=== PATIENT | female | born 1970 | race Caucasian/White ===

== ENCOUNTER 2023-10-15 03:26 | Emergency (ER) | payer BC ==
[2023-10-15] MEDS ORDERED: METOCLOPRAMIDE 10 MG/2mL INJ ONE (04:02)
[2023-10-15] MEDS ORDERED: DIPHENHYDRAMINE 50 MG/ML VIAL ONE (04:02)
[2023-10-15] MEDS ORDERED: NA CHLORIDE 0.9% 1,000 ML ONE (04:03)
[2023-10-15] MEDS ORDERED: MORPHINE 4 MG/ML SYR ONE (04:03)
[2023-10-15] MEDS ORDERED: LABETALOL 20 MG/4ML SYRINGE IV ONE (04:16)
[2023-10-15 04:18] LABS: Absolute Basophils 0.1 K/uL (0-0.5); Absolute Eosinophils 0.2 K/uL (0-0.5); Absolute Lymphocytes (CBC) 3.3 K/uL (0.7-4.9); Absolute Monocytes 0.5 K/uL (0.1-1.3); Absolute Neutrophil 4.8 K/uL (1.8-8.0); Basophils % 0.6 % (0-1.3); Eosinophils % 2.5 % (0-4.4); Hematocrit 45.8 % (36.0-45.0); Hemoglobin 15.7 g/dL (12.0-15.0); Lymphocytes % 37.1 % (15.3-44.8); MCH 31.8 pg (27.0-35.0); MCHC 34.3 g/dL (32.0-36.0); MCV 92.7 fL (80-100); MPV 9.3 fL (7.6-11.3); Monocytes % 5.2 % (3.3-12.3); Neutrophils % 54.6 % (41.7-73.7); Platelets 213 thou/uL (152-406); RBC Red Blood Cell Count 4.94 M/uL (3.86-4.86); Red Cell Distribution Width 13.3 % (12.1-15.2)
[2023-10-15 04:21] LABS: PT Prothrombin Time 11.3 SECONDS (9.4-12.5); PTT, Activated Partial Thromb 34.4 SECONDS (24.3-36.9); Protime INR 1.03
[2023-10-15 04:33] LABS: Anion Gap 8.7 mEq/L (5.0-15.0); Potassium 3.7 mEq/L (3.5-5.1)
[2023-10-15] MEDS ORDERED: LEVETIRACETAM 500 MG/5 ML VIAL IV ONE (04:33)
[2023-10-15] MEDS ORDERED: NA CHLORIDE 0.9% 100 ML ONE (04:34)
--- NOTE | 2023-10-15 09:01 | EDPHYS ---
Physician Documentation [facility] Name: Emmy Bullock Age: 53 yrs Sex: Female : 1970 Arrival Date: 10/15/2023 Time: 03:26 Bed 5 Private MD: ED Physician August Schofield HPI: 10/14 03:53 This 53 yrs old Female presents to ER via Unassigned with complaints of Pain, ec2 LEFT SIDE HEAD PAIN. 03:53 Patient arrives today for evaluation of headache. Patient complaining of left-sided ec2 headache that was sudden onset after climaxing during intercourse. States that she took sumatriptan with no alleviation of symptoms.. 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 Flu vaccine is not up to date. - Infectious Disease History:: Denies. - Social history:: Smoking status: Patient reports the use of cigarette tobacco products, denies chronic smoking, but will smoke occasionally, Patient uses alcohol, only on a social basis. Patient/guardian denies using street drugs, IV drugs. ROS: 03:53 Constitutional: as per hpi ec2 Exam: 03:53 Constitutional: GEN: NAD Head: atraumatic Eyes: EOMI Ears: External ears are ec2 normal. CV: regular rate LUNGS: no respiratory distress ABD: non-distended SKIN: no evidence of rashes MSK: no evidence of trauma NEURO: moves all extremities equally, cranial nerves II through XII intact, strength intact all 4 extremities, intact ambulation Vital Signs: 03:40 BP 213 / 122; Pulse 83; Resp 17 S; Pulse Ox 97% on R/A; Weight 115.67 kg; Height 5 ft. jw7 2 in. ; Pain 8/10; 04:50 BP 162 / 90; Pulse 66; Resp 16 S; Pulse Ox 95% on R/A; jw7 05:51 BP 142 / 95; Pulse 65; Resp 17 S; Pulse Ox 95% on R/A; lg3 06:25 BP 138 / 88; Pulse 61; Resp 16 S; Temp 97.6(O); Pulse Ox 96% on R/A; lg3 03:40 Body Mass Index 46.64 (115.67 kg, 157.48 cm) jw7 03:40 Pain Scale: Adult jw7 MDM: 03:39 Patient medically screened. ec2 03:53 Data reviewed: vital signs. ED course: Patient arrives today for evaluation of a ec2 headache. Examination remarkable for neuro intact individual. Will treat the patient's symptoms, treat her hypertension and obtain CT scan of the head and CT angio to evaluate for subarachnoid brain bleed. Additionally considered other process such as headache syndrome, intracranial mass.. 04:24 ED course: CT of the head and CT angio of the head and neck, independently reviewed and ec2 interpreted by me, concerning for subarachnoid brain bleed. Will proceed with blood pressure management, pain control, likely transfer.. 04:37 ED course: Metabolic profile, CBC, coagulation profile is unremarkable. . ec2 05:06 ED course: Radiology reports negative CT angio, negative CT scan of the head. I ec2 discussed the case personally with radiology due to concern for hyperdensity, radiology expresses this is likely calcification and does not appear to be hemorrhagic in nature. Will continue to monitor the patient clinically, she does report marked improvement in her headache.. 06:17 ED course: On reassessment patient reports marked improvement in symptoms, has a intact ec2 neurologic exam, is ambulatory. Will discharge home and instructed on strict return precautions symptoms worsen will go to obtain additional imaging.. 10/14 04:08 Order name: Basic Metabolic Panel; Complete Time: 04:37 EDMS 10/14 04:08 Order name: CBC with Automated Diff; Complete Time: 04:37 EDMS 10/14 04:08 Order name: Protime (+INR); Complete Time: 04:37 EDMS 10/14 04:08 Order name: PTT, Activated Partial Thromb; Complete Time: 04:37 EDMS 10/14 04:03 Order name: Head Brain Wo Cont EDMS 10/14 04:03 Order name: Head angio EDMS 10/14 03:49 Order name: IV; Complete Time: 04:12 ec2 Administered Medications: 04:10 Drug: NS 0.9% IV 1000 ml IV at 1 bolus Per protocol; 1000 mL bolus Route: IV; Rate: 1 jw7 bolus; Site: right antecubital; 05:54 Follow up: Response: No adverse reaction; IV Status: Completed infusion; IV Intake: jw7 1000ml 04:10 Drug: metoCLOPramide IVP 10 mg IVP once; over 1 to 2 minutes Route: IVP; Site: right [facility] antecubital; 05:54 Follow up: Response: No adverse reaction; Marked relief of symptoms [facility] 04:10 Drug: diphenhydrAMINE IVP 25 mg IVP once Route: IVP; Site: right antecubital; jw7 05:54 Follow up: Response: No adverse reaction; Marked relief of symptoms [facility] 04:10 Drug: morphine IVP or IV 2 mg IVP once over 4 mins Route: IVP; Infused Over: 4 mins; jw7 Site: right antecubital; 05:54 Follow up: Response: No adverse reaction; Marked relief of symptoms [facility] 04:30 Drug: Labetalol IV 10 mg IV at bolus once Route: IV; Rate: bolus; [address]; 05:54 Follow up: Response: No adverse reaction; Marked relief of symptoms; IV Status: jw7 Completed infusion; IV Intake: 2ml 04:47 Drug: Keppra IV 1000 mg IV at bolus once Route: IV; Rate: bolus; Site: right [address]; 05:54 Follow up: Response: No adverse reaction; Marked relief of symptoms; IV Status: jw7 Completed infusion; IV Intake: 110ml Disposition Summary: 10/15/23 06:17 Discharge Ordered Notes: Location: Home ec2 Condition: Stable ec2 Diagnosis - Headache ec2 Followup: ec2 - With: Private Physician - When: - Reason: Re-evaluation by your physician Discharge Instructions: - Discharge Summary Sheet ec2 - General Headache Without Cause ec2 Forms: - Medication Reconciliation Form ec2 - Antibiotic Education ec2 - Prescription Opioid Use ec2 - Patient Portal Instructions ec2 - Leadership Thank You Letter ec2 Prescriptions: - Compazine 10 mg Oral Tablet - take 1 tablet ORAL route every 8 hours As needed; 20 tablet; Refills: 0, ec2 Product Selection Permitted Signatures: Dispatcher [facility] Emmy Valle RN RN jw7 August Schofield MD MD ec2 Corrections: (The following items were deleted from the chart) 05:26 04:24 ED course: CT of the head and CT angio of the head and neck, independently ec2 reviewed and interpreted by me, concerning for subarachnoid brain bleed. Will proceed with blood pressure management, pain control, transfer.. ec2
--- NOTE | 2023-10-15 09:01 | ER ---
Nurse's Notes [facility] Name: Emmy Bullock Age: 53 yrs Sex: Female : 1970 Arrival Date: 10/15/2023 Time: 03:26 Bed 5 Private MD: Diagnosis: Headache Presentation: 10/14 03:40 Chief complaint: Patient states: At the climax of sex I got a severe pain on the left jw7 side of my head. I've tried taking multiple medications to help with the pain but no relief. 03:40 Coronavirus screen: At this time, the client does not indicate any symptoms associated jw7 with coronavirus-19. Ebola Screen: No symptoms or risks identified at this time. Initial Sepsis Screen: Does the patient meet any 2 criteria? No. Patient's initial sepsis screen is negative. Does the patient have a suspected source of infection? No. Patient's initial sepsis screen is negative. Risk Assessment: Do you want to hurt yourself or someone else? Patient reports no desire to harm self or others. Onset of symptoms was October 14, 2023. 03:40 Method Of Arrival: Ambulatory jw7 03:40 Acuity: TACHO 2 jw7 Triage Assessment: 03:40 General: Appears in no apparent distress. uncomfortable, Behavior is calm, cooperative, jw7 appropriate for age. Pain: Complains of pain in left frontal area, left side of the back of head and left temporal area Pain does not radiate. Pain currently is 8 out of 10 on a pain scale. Quality of pain is described as sharp, throbbing, Pain began 1 day ago. Is continuous. EENT: No deficits noted. No signs and/or symptoms were reported regarding the EENT system. Neuro: Level of Consciousness is awake, alert, obeys commands, Oriented to person, place, time, situation, Appropriate for age. Cardiovascular: Heart tones S1 S2 present Capillary refill < 3 seconds Clubbing of nail beds is absent JVD is absent Patient's skin is warm and dry. Respiratory: Airway is patent Trachea midline Respiratory effort is even, unlabored, Respiratory pattern is regular, symmetrical, Breath sounds are clear bilaterally. GI: Abdomen is round non-distended, obese, Bowel sounds present X 4 quads. Abd is soft and non tender X 4 quads. : No deficits noted. No signs and/or symptoms were reported regarding the genitourinary system. Derm: Skin is intact, is healthy with good turgor, Skin is dry, Skin is normal, Skin temperature is warm. Musculoskeletal: Circulation, motion, and sensation intact. Range of motion: intact in all extremities. 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 Flu vaccine is not up to date. - Infectious Disease History:: Denies. - Social history:: Smoking status: Patient reports the use of cigarette tobacco products, denies chronic smoking, but will smoke occasionally, Patient uses alcohol, only on a social basis. Patient/guardian denies using street drugs, IV drugs. Screenin:45 [facility] ED Fall Risk Assessment (Adult) History of falling in the last 3 months, jw7 including since admission No falls in past 3 months (0 pts) Confusion or Disorientation No (0 pts) Intoxicated or Sedated No (0 pts) Impaired Gait No (0 pts) Mobility Assist Device Used No (0 pt) Altered Elimination No (0 pt) Score/Fall Risk Level 0 - 2 = Low Risk Oriented to surroundings, Maintained a safe environment, Educated pt \T\ family on fall prevention, incl call for assistance when getting out of bed. Abuse screen: Denies threats or abuse. Denies injuries from another. Nutritional screening: No deficits noted. Tuberculosis screening: No symptoms or risk factors identified. Assessment: 03:45 General: See Triage Assessment. jw7 04:50 Reassessment: Patient appears in no apparent distress at this time. No changes from jw7 previously documented assessment. Patient and/or family updated on plan of care and expected duration. Pain level reassessed. Patient is alert, oriented x 3, equal unlabored respirations, skin warm/dry/pink. 05:55 Reassessment: Patient appears in no apparent distress at this time. Patient and/or jw7 family updated on plan of care and expected duration. Pain level reassessed. Patient is alert, oriented x 3, equal unlabored respirations, skin warm/dry/pink. Patient states symptoms have improved. Vital Signs: 03:40 BP 213 / 122; Pulse 83; Resp 17 S; Pulse Ox 97% on R/A; Weight 115.67 kg; Height 5 ft. jw7 2 in. ; Pain 8/10; 04:50 BP 162 / 90; Pulse 66; Resp 16 S; Pulse Ox 95% on R/A; jw7 05:51 BP 142 / 95; Pulse 65; Resp 17 S; Pulse Ox 95% on R/A; lg3 06:25 BP 138 / 88; Pulse 61; Resp 16 S; Temp 97.6(O); Pulse Ox 96% on R/A; lg3 03:40 Body Mass Index 46.64 (115.67 kg, 157.48 cm) jw7 03:40 Pain Scale: Adult jw7 ED Course: 03:29 Patient arrived in ED. ec2 03:30 August Schofield MD is Attending Physician. ec2 03:40 Arm band placed on. jw7 03:45 Patient has correct armband on for positive identification. Bed in low position. Call jw7 light in reach. Provided Education on: Use of Call Light. 03:52 Emmy Gutiérrez, RN is Primary Nurse. jw7 03:56 Triage completed. jw7 03:59 Initial lab(s) drawn, by ED staff, sent to lab. Inserted saline lock: 20 gauge in right jw7 antecubital area, using aseptic technique. Blood collected. 04:09 Head Brain Wo Cont In Process Unspecified. EDMS 04:09 Head angio In Process Unspecified. EDMS 06:26 No provider procedures requiring assistance completed. IV discontinued, intact, lg3 bleeding controlled, No redness/swelling at site. Pressure dressing applied. Administered Medications: 04:10 Drug: NS 0.9% IV 1000 ml IV at 1 bolus Per protocol; 1000 mL bolus Route: IV; Rate: 1 jw7 bolus; Site: right antecubital; 05:54 Follow up: Response: No adverse reaction; IV Status: Completed infusion; IV Intake: jw7 1000ml 04:10 Drug: metoCLOPramide IVP 10 mg IVP once; over 1 to 2 minutes Route: IVP; Site: right jw7 antecubital; 05:54 Follow up: Response: No adverse reaction; Marked relief of symptoms jw7 04:10 Drug: diphenhydrAMINE IVP 25 mg IVP once Route: IVP; Site: right antecubital; jw7 05:54 Follow up: Response: No adverse reaction; Marked relief of symptoms jw7 04:10 Drug: morphine IVP or IV 2 mg IVP once over 4 mins Route: IVP; Infused Over: 4 mins; jw7 Site: right antecubital; 05:54 Follow up: Response: No adverse reaction; Marked relief of symptoms jw7 04:30 Drug: Labetalol IV 10 mg IV at bolus once Route: IV; Rate: bolus; Site: right [facility] antecubital; 05:54 Follow up: Response: No adverse reaction; Marked relief of symptoms; IV Status: jw7 Completed infusion; IV Intake: 2ml 04:47 Drug: Keppra IV 1000 mg IV at bolus once Route: IV; Rate: bolus; Site: right [facility] antecubital; 05:54 Follow up: Response: No adverse reaction; Marked relief of symptoms; IV Status: jw7 Completed infusion; IV Intake: 110ml Medication: 06:27 VIS not applicable for this client. lg3 Intake: 05:54 IV: 1000ml; Total: 1000ml. jw7 05:54 IV: 2ml; Total: 1002ml. jw7 05:54 IV: 110ml; Total: 1112ml. jw7 Outcome: 06:17 Discharge ordered by . ec2 06:26 Discharged to home ambulatory, with significant other, lg3 06:26 Condition: stable 06:26 Discharge instructions given to patient, Instructed on discharge instructions, follow up and referral plans. medication usage, Demonstrated understanding of instructions, follow-up care, medications, Prescriptions given X , 06:27 Patient left the ED. lg3 Signatures: Dispatcher [employer] Milvia Lindsey RN RN lg3 Emmy Gutiérrez RN RN jw7 August Schofield MD MD ec2
[2023-10-15 17:04] VITALS: BP 138/88; TEMP 97.6; O2SAT 96
--- NOTE | 2023-10-15 22:44 | RAD REPORT ---
EXAM DESCRIPTION: CT - Head angio - 10/15/2023 7:20 am CLINICAL HISTORY: 53 years Female HEADACHE TECHNIQUE: Following dynamic intravenous nonionic contrast infusion, multiple axial helical overlapp ed CT images with multiplanar reconstructions were obtained. All CT data was transferred to a 3D wo rkstation for multiplanar reformation and 3D reconstruction.The CT study is performed according to AL TK (as low as reasonably achievable) or ALARA/IMAGE GENTLY, with automatic adjustment of mA and/or k V according to patient size. COMPARISON: Head CT without contrast performed on 10/15/2023 at 4:13 AM FINDINGS: There is optimal intracranial vascular enhancement. LEFT: INTERNAL CAROTID ARTERY: The distal internal carotid artery is unremarkable. ANTERIOR CEREBRAL ARTERY: he A1 segment is normal in caliber and contour. The A2 segment is normal in caliber and contour. The region of the anterior communicating artery is unremarkable. MIDDLE CEREBRAL ARTERY: The M1 segment is normal in caliber and contour. The M2 branches normal in ca liber and contour. POSTERIOR CEREBRAL ARTERY: he P1 segment is mildly hypoplastic. There appears to be a origin of the left posterior cerebral artery. The P2 segment is normal in caliber and contour. VERTEBRAL ARTERY: The intradural left vertebral artery is normal in caliber and contour. RIGHT: INTERNAL CAROTID ARTERY: The distal internal carotid artery is unremarkable. ANTERIOR CEREBRAL ARTERY: The A1 segment is normal in caliber and contour. The A2 segment is normal i n caliber and contour. MIDDLE CEREBRAL ARTERY: he M1 segment is normal in caliber and contour. The M2 branches normal in ed iber and contour. POSTERIOR CEREBRAL ARTERY: The P1 segment is normal in caliber and contour. The P2 segment is normal in caliber and contour. The right posterior communicating artery is patent. VERTEBRAL ARTERY: The intradural right vertebral artery is markedly diminutive in caliber as are the visualized portions of the cervical right vertebral artery. Stenosis along the fourth segment of the right vertebral artery is difficult to exclude due to the extremely small caliber of the vessel. BASILAR ARTERY: The basilar artery is normal in caliber and contour. DURAL VENOUS SINUSES: The dural venous sinuses are patent. NON-ANGIOGRAPHIC FINDINGS: The visualized portions of the brain are unremarkable. The orbital contents are unremarkable. The par anasal sinuses and mastoid air cells are clear. IMPRESSION: 1. Markedly diminutive caliber of the visualized cervical and intradural right vertebr al artery. Stenosis along the V4 segment of the right vertebral artery is difficult to exclude due to the extremely small caliber of the vessel. If clinical symptoms warrant, consider MRI of the brain f or further evaluation. 2. 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 3. Otherwise, unremarkable intracranial CTA. There is no evidence of definite large vessel occlusio n, aneurysm or other vascular malformation. Electronically signed by: Cate Howe DO 10/15/2023 04:44 AM CDT RP Due to temporary technical issues with the PACS/Fluency reporting system, reports are being signed by the in house radiologists without review as a courtesy to insure prompt reporting. The interpreting radiologist is fully responsible for the content of the report.
--- NOTE | 2023-10-15 22:46 | RAD REPORT ---
EXAM DESCRIPTION: CT - Head Brain Wo Cont - 10/15/2023 7:[address] head without IV contrast CLINICAL HISTORY: 53 years Female HEADACHE TECHNIQUE: Multiple axial CT images of the brain were performed followed by sagittal and coronal rec onstructed images. The CT study is performed according to ALARA (as low as reasonably achievable) or ALARA/IMAGE GENTLY, with automatic adjustment of mA and/or kV according to patient size. Performed on: 10/15/2023 at 4:13 AM COMPARISON: No prior studies were available for comparison. FINDINGS: Brain: There is no evidence of mass, acute mass effect or midline shift. There are no acut e extra-axial fluid collections. There is no evidence of acute intracranial hemorrhage. The cerebra l sulci and ventricles are normal in size and configuration. There are no focal abnormal areas of inc reased or decreased attenuation. There is some calcification along the anterior interhemispheric falx . Paranasal Sinuses and Mastoids: There is no significant mucosal thickening of the paranasal sinuses. The mastoid air cells are clear. Orbits: The orbital contents are grossly unremarkable. Bones: No acute osseous abnormalities are identified. Soft Tissues: No focal soft tissue abnormalities are identified. IMPRESSION: There is no evidence of acute intracranial pathology. Electronically signed by: Cate Howe DO 10/15/2023 05:47 AM CDT RP Due to temporary technical issues with the PACS/Fluency reporting system, reports are being signed by the in house radiologists without review as a courtesy to insure prompt reporting. The interpreting radiologist is fully responsible for the content of the report.
== END 2023-10-15 06:27 | disposition home or self-care (01) ==
LOC: ER 03:26
DX: R51.9 Headache, unspecified (principal); F17.210 Nicotine dependence, cigarettes, uncomplicated; Z28.310 Unvaccinated for COVID-19
CPT/HCPCS: 85025; 80048; 36415; 85610; 85730; 70450; 70496; Q9967; J1953; J2765; J1200; J7030; 96365; 96375; 99284